=== PATIENT | female | born 1950 | race Caucasian/White ===

== ENCOUNTER → 2016-12-13 | Outpatient (CLI) | payer MEDICARE ==
--- NOTE | 2016-12-13 14:29 | RAD ---
Indication: Right upper quadrant pain. Technique: Ultrasound abdomen complete was performed. No comparison is available. Findings: Visualized pancreas is unremarkable. Aorta is normal caliber. IVC is patent. Liver is normal in size and echotexture. Gallbladder is surgically absent. Common bile duct is prominent at 12 mm in diameter. This can be within normal limits post cholecystectomy. Kidneys are without hydronephrosis or mass. Spleen is not enlarged. Impression: Dilated common bile duct, can be a normal finding postcholecystectomy. Correlate with laboratory values. If further workup is required, consider MRCP.
== END | disposition home or self-care (01) ==
LOC: US 12:01
PROVIDERS: ATTEND Family Medicine
DX: R10.11 Right upper quadrant pain (principal)
CPT/HCPCS: 76700